=== PATIENT | male | born 1970 | race Caucasian/White ===

== ENCOUNTER 2018-08-06 03:08 | Emergency (ER) | payer OTHER ==
[~2018-08-06] VITALS: Ht 167.6 cm; Wt 127.2 kg
[2018-08-06 03:18] VITALS: BP 125/77
== END 2018-08-06 03:49 | disposition home or self-care (01) ==
LOC: M.ERS 03:08
DX: Z43.3 Encounter for attention to colostomy (principal); Z88.6 Allergy status to analgesic agent; Z88.5 Allergy status to narcotic agent; Z88.8 Allergy status to other drugs, medicaments and biological substances

== ENCOUNTER 2018-08-08 10:45 | Emergency (ER) | payer OTHER ==
[~2018-08-08] VITALS: Ht 167.6 cm; Wt 130.8 kg
[2018-08-08] MEDS ORDERED: AMARYL4 MG PO (10:58)
[2018-08-08] MEDS ORDERED: PROTONIX40 M1 PO (10:58)
[2018-08-08] MEDS ORDERED: OXYCODONE HCL 55 MG PO (10:58)
[2018-08-08] MEDS ORDERED: MS CONTIN15 MG PO (10:59)
[2018-08-08] MEDS ORDERED: LASIX 20 MG TAB20 MG PO (10:59)
[2018-08-08] MEDS ORDERED: CYMBALTA60 MG PO (10:59)
[2018-08-08 11:15] LABS: HEMOGLOBIN 12.8 gm/dL (14.0-18.0); MCH 31.1 pg (26.0-34.0); MCHC 33.8 g/dL (28.0-37.0); MCV 91.9 fL (80.0-100.0); MPV 7.5 fl. (7.2-11.1); NUCLEATED RBCS 0 /100WBC; PLATELET COUNT* 167 thou/uL (150-400); RBC 4.13 mil/uL (4.50-6.00); RDW-CV 20.1 % (10.5-14.5); WBC 16.1 thou/uL (4.0-11.0)
[2018-08-08 11:28] LABS: ABSOLUTE LYMPHOCYTES 3.2 thou/uL (0.8-5.3); ABSOLUTE MONOCYTES 0.5 thou/uL (0.0-1.2); ABSOLUTE NEUTROPHILS 12.4 thou/uL (1.6-8.1)
[2018-08-08 11:29] LABS: ALBUMIN 1.1 g/dL (3.4-5.0); CALCIUM 8.4 mg/dL (8.5-10.1); CREATININE 2.6 mg/dL (0.6-1.3); PLATELET ESTIMATE ADEQUATE; POTASSIUM 3.1 mmol/L (3.5-5.1); TOTAL BILIRUBIN 17.9 mg/dL (<0.1-1.0)
[2018-08-08 11:30] LABS: ANISOCYTOSIS 2+
[2018-08-08 11:39] LABS: TOTAL PROTEIN 6.4 g/dL (6.4-8.2)
[2018-08-08 12:48] LABS: BE -6.7 mmol/L (-2 to +3); PCO2 29.6 mmHg (35.0-45.0); PO2 80.7 mmHg (75.0-100.0); pH 7.379 (7.340-7.450)
[2018-08-08 13:05] LABS: AMMONIA 74 umol/L (11-32); TROPONIN-I LEVEL <0.06 ng/mL (<0.06)
[2018-08-08 15:50] VITALS: BP 130/85
== END 2018-08-08 15:50 | disposition short-term general hospital (02) ==
LOC: M.ERS 10:45
PROVIDERS: Personal Emergency Response Attendant
DX: E16.2 Hypoglycemia, unspecified (principal); Z88.6 Allergy status to analgesic agent; Z88.5 Allergy status to narcotic agent; Z88.8 Allergy status to other drugs, medicaments and biological substances